=== PATIENT | male | born 1950 | race Caucasian/White ===

== ENCOUNTER 2021-06-07 13:00 | Day surgery (SDC) | payer MEDICARE, OTHER ==
[~2021-06-07] VITALS: Ht 177.8 cm; Wt 84.1 kg
[~2021-06-07 13:00] MED LIST: ANORO IH; ASPI325T6 PO; LIPITOR 40MG TA40 MG PO; MICROZIDE12.5 MG PO; PRINIVIL10 MG PO; PRINIVIL20 MG PO; PRINZIDE 12.5 M1 TA1 PO
--- NOTE | 2021-06-07 13:13 | NUR ---
70 year old patient arrived with his , and was [place] [facility] [place] via ambulation. No use of assistive devices and using a steady gait. Patient is alert and oriented x3. Medications and HX reviewed. Procedure verified and consent signed. First and last name + verified with the patient, who confirmed it with his ID band. Vitals obtained. Physical assessment completed. IV started in R wrist on first attempt with 20G. IVF are infusing without difficulty. Warm blanket provided. Patient used the bathroom before changing into a clean gown. Non-slip socks are on. Side rails x2. Call honeycutt is at bedside.
[2021-06-07] MEDS ORDERED: FLOMAX 0.40.4 MG/CAP PO (13:19)
[2021-06-07 13:40] VITALS: BP 126/67; PULSE 92; TEMP 98.3
--- NOTE | 2021-06-07 15:25 | NUR ---
Patient was taken back to the OR by GRETCHEN Hercules.
[2021-06-07 16:50] VITALS: BP 138/63; PULSE 68; TEMP 97.6
[2021-06-07 17:00] VITALS: BP 123/78; PULSE 48
[2021-06-07 17:15] VITALS: BP 117/73; PULSE 86
--- NOTE | 2021-06-07 17:46 | NUR ---
1645 Report received from TREV ReyesU RN. 1650 Transfer pt from PACU to [facility] via cart and this RN and GRETCHEN Reyes assist to [facility] [place] [address]. Monitors on and alarms set. Call light within reach. Pt's present in room. Pt has no complaints of pain or nausea. Pt requests water and crackers. Pt alert and oriented and answering all questions appropriately. 1700 Pt taking food and drink well. No complications stated. 1728 Pt ambulates to restroom and voids. 1740 Discharge instructions given to pt and pt's . All questions answered to their satisfaction. Handed to them are a thank you card and discharge information. 1746 Pt transferred out of hospital via wheelchair and GRETCHEN Hidalgo assist, to private vehicle driven by pt's .
== END 2021-06-07 17:46 | disposition home or self-care (01) ==
LOC: SDCO 13:00
DX: N13.1 Hydronephrosis with ureteral stricture, not elsewhere classified (principal); N32.89 Other specified disorders of bladder; N32.3 Diverticulum of bladder; N40.1 Benign prostatic hyperplasia with lower urinary tract symptoms; R35.0 Frequency of micturition; I10 Essential (primary) hypertension; E78.5 Hyperlipidemia, unspecified; J44.9 Chronic obstructive pulmonary disease, unspecified; Z79.82 Long term (current) use of aspirin; Z79.899 Other long term (current) drug therapy; Z99.81 Dependence on supplemental oxygen; Z86.73 Personal history of transient ischemic attack (TIA), and cerebral infarction without residual deficits; Z86.718 Personal history of other venous thrombosis and embolism
CPT/HCPCS: C1769; C2617; J0690; J1100; J2405; J2704; J3010; Q9967

== ENCOUNTER 2021-09-15 06:54 | Day surgery (SDC) | payer MEDICARE, OTHER ==
[~2021-09-15] VITALS: Ht 177.8 cm; Wt 82.9 kg
[~2021-09-15 06:54] MED LIST changes: +FLOMAX 0.40.4 MG/CAP PO
[2021-09-15 07:37] VITALS: BP 110/62; PULSE 85; TEMP 97.4
[2021-09-15 09:58] VITALS: BP 105/62; PULSE 62; TEMP 97.5
--- NOTE | 2021-09-15 09:58 | NUR ---
The patient arrived back to [place] [facility] from the recovery room at this time. The patient appears alert and oriented and denies any pain or nausea at this time. The patient agrees to try some ice water. The patient's daughter is at his bedside at this time. Post operative vital signs were started at this time. Denies any further needs.
[2021-09-15 10:13] VITALS: BP 111/64; PULSE 72
--- NOTE | 2021-09-15 10:13 | NUR ---
The patient appears to be tolerating the water well and denies wanting anything further to eat or drink. Vital signs appear stable.
[2021-09-15 10:28] VITALS: BP 118/59; PULSE 55
--- NOTE | 2021-09-15 10:28 | NUR ---
The patient continues to deny any pain or nausea at this time. Vital signs appear stable.
[2021-09-15 10:43] VITALS: BP 114/60; PULSE 51
[2021-09-15 10:44] VITALS: BP 105/62; PULSE 60
--- NOTE | 2021-09-15 10:50 | NUR ---
The patient voices a desire to be discharged home. The patient's IV was removed and a pressure dressing was applied to the site. The patient is going to get dressed and use the bathroom prior to reviewing his discharge instructions.
--- NOTE | 2021-09-15 11:00 | NUR ---
Discharge instructions were reviewed with the patient and his daughter at this time. They both verbalized understanding and have no questions for the nurse at this time. The patient successfully voided and is ready to be escorted out.
--- NOTE | 2021-09-15 11:15 | NUR ---
The patient was escorted out via wheelchair to a private vehicle by GRETCHEN Castro. The patient's belongings and dishcarge paperwork were sent with him. The patient's daughter is present to drive him home.
== END 2021-09-15 11:15 | disposition home or self-care (01) ==
LOC: SDCO 06:54
DX: Z46.6 Encounter for fitting and adjustment of urinary device (principal); N13.1 Hydronephrosis with ureteral stricture, not elsewhere classified; N40.0 Benign prostatic hyperplasia without lower urinary tract symptoms; Z87.891 Personal history of nicotine dependence
CPT/HCPCS: J0690; J2405; J2704; J7120